=== PATIENT | male | born 2000 | race Hispanic/Latino ===

== ENCOUNTER 2018-03-14 16:49 | Emergency (ER) | payer OTHER ==
[2018-03-14] MEDS ORDERED: FAMOTIDINE 20 MG TAB ONE (18:20)
[2018-03-14] MEDS ORDERED: NA CHLORIDE 0.9% 1,000 ML ONE (18:20)
[2018-03-14] MEDS ORDERED: ONDANSETRON 4 MG (ODT) TAB ONE (18:20)
[2018-03-14 18:36] LABS: ALT/SGPT 25 U/L (12-78); AST/SGOT 14 U/L (15-37); Albumin 4.8 g/dL (3.4-5.0); Alkaline Phosphatase 84 U/L (45-117); BUN Blood Urea Nitrogen 8 mg/dL (7-18); Bicarbonate 24 mmol/L (21-32); Bilirubin Direct 0.2 mg/dL (0-0.2); Glucose Level 74 mg/dL (74-106); Potassium 3.7 mmol/L (3.5-5.1); Protein, Total 8.2 g/dL (6.4-8.2); Sodium Level 141 mmol/L (136-145)
[2018-03-14 18:41] LABS: Protime INR 1.2
[2018-03-14 18:47] LABS: Absolute Lymphocytes (CBC) 1.1 K/uL (0.7-4.9); Absolute Monocytes 0.3 K/uL (0.1-1.3); Absolute Neutrophil 1.5 K/uL (1.8-8.0); Basophils % 0.6 % (0-1.3); Eosinophils % 0.9 % (0-4.4); Hematocrit 46.9 % (39.6-49.0); Lymphocytes % 36.6 % (15.3-44.8); MPV 10.6 fL (7.6-11.3); Monocytes % 10.6 % (3.3-12.3); RBC Red Blood Cell Count 5.79 M/uL (4.33-5.43)
[2018-03-14 19:21] LABS: Blood Morphology Comment NOT SEEN (NOT SEEN); Platelet Estimate ADEQ; Urine White Blood Cell Casts OK
[2018-03-14 19:29] LABS: Barbiturates NEGATIVE (NEGATIVE); Benzodiazepines NEGATIVE (NEGATIVE); Cocaine NEGATIVE (NEGATIVE); METHAMPHETAM NEGATIVE (NEGATIVE); Methadone NEGATIVE (NEGATIVE); Opiates NEGATIVE (NEGATIVE); Phencyclidine NEGATIVE (NEGATIVE); THC Cannibis NEGATIVE (NEGATIVE)
[2018-03-14 21:24] LABS: Urine Blood TRACE (NEG); Urine Glucose NEGATIVE (NEG); Urine Protein 1+ (NEG); Urine Specific Gravity >1.030 (1.005-1.030)
--- NOTE | 2018-03-14 23:14 | EKG ---
Test Date: 2018-03-14 Test Time: 17:36:29 Carry Out Clerk: GALILEO MEASUREMENT RESULTS: Intervals: Rate: 71 SC: 134 QRSD: 88 QT: 358 QTc: 389 [place]: P: 65 SC: 134 QRS: 73 T: 70 INTERPRETIVE STATEMENTS: Normal sinus rhythm with sinus arrhythmia Normal ECG No previous ECG available for comparison Electronically Signed On 03-14-18 23:13:37 STEEL CRANE OPERATOR by Dashawn Strong
--- NOTE | 2018-03-15 01:29 | ER ---
Nurse's Notes [facility] Name: Dann Mckeon Age: 17 yrs Sex: Male : 2000 Arrival Date: 03/14/2018 Time: 16:52 Bed 20 Private MD: Diagnosis: Acute stress reaction Presentation: 03/14 16:59 Presenting complaint: Patient states: "I've been suicidal thoughts for the past 2 aj1 weeks, its because of a long-term relationship break up, and I've been having trouble sleeping and eating." Denies homicidal ideation. Denies a plan at this time. Transition of care: patient was not received from another setting of care. Onset of symptoms was 2018. Risk Assessment: Do you want to hurt yourself or someone else? Patient reports desire/thoughts of hurting themselves or someone else. Provider notified. Initial Sepsis Screen: Does the patient meet any 2 criteria? No. Patient's initial sepsis screen is negative. Does the patient have a suspected source of infection? No. Patient's initial sepsis screen is negative. Care prior to arrival: None. 16:59 Method Of Arrival: Ambulatory aj1 16:59 Acuity: KATIE 2 aj1 Triage Assessment: 17:02 General: Appears in no apparent distress. comfortable, Behavior is calm, cooperative, aj1 appropriate for age. Pain: Denies pain. Neuro: Level of Consciousness is awake, alert, obeys commands. Cardiovascular: Patient's skin is warm and dry. Respiratory: Airway is patent Respiratory effort is even, unlabored, Respiratory pattern is regular, symmetrical. Historical: - Allergies: 17:02 No Known Allergies; aj1 - Home Meds: 17:02 None [Active]; aj1 - PMHx: 17:02 None; aj1 - PSHx: 17:02 None; aj1 - Immunization history:: Flu vaccine is not up to date. - Social history:: Smoking status: Patient uses tobacco products, denies chronic smoking, but will smoke occasionally. - Ebola Screening: : Patient denies travel to an Ebola-affected area in the 21 days before illness onset. Screenin:49 Abuse screen: Denies threats or abuse. Nutritional screening: No deficits noted. em Tuberculosis screening: No symptoms or risk factors identified. Fall Risk None identified. Assessment: 17:45 General: Appears in no apparent distress. comfortable, Behavior is calm, cooperative, em reports feeling suicidal by hanging himself with rope or shoe laces due to recent breakup with girlfriend, pt states he wants to hurt himself but isn't committed, pt has cut himself on the left arm previously, also reports being nauseous and throwing up for about a month, also reports losing about 20 pounds in the month. Pain: Denies pain. Neuro: Level of Consciousness is awake, alert, obeys commands, Oriented to person, place, time, situation. Cardiovascular: Patient's skin is warm and dry. Respiratory: Airway is patent Respiratory effort is even, unlabored, Respiratory pattern is regular, symmetrical. GI: Reports nausea. Derm: Skin is intact, scarring noted to the left arm. Musculoskeletal: Range of motion: intact in all extremities. 17:55 Reassessment: I agree with previous assessment. hb 18:50 Reassessment: Patient appears in no apparent distress at this time. Patient and/or em family updated on plan of care and expected duration. Pain level reassessed. Patient is alert, oriented x 3, equal unlabored respirations, skin warm/dry/pink. given water, tolerated well Patient denies pain at this time. 19:00 General: Appears in no apparent distress. comfortable, Behavior is calm, cooperative. rr5 Pain: Denies pain. Neuro: Level of Consciousness is awake, alert, obeys commands, Oriented to person, place, time, situation, Reports suicidal ideation and depression verbalized. Cardiovascular: Capillary refill < 3 seconds Patient's skin is warm and dry. Respiratory: Airway is patent Respiratory effort is even, unlabored, Respiratory pattern is regular, symmetrical. GI: No signs and/or symptoms were reported involving the gastrointestinal system. : No signs and/or symptoms were reported regarding the genitourinary system. 20:00 Reassessment: Patient appears in no apparent distress at this time. No changes from rr5 previously documented assessment. Patient is alert, oriented x 3, equal unlabored respirations, skin warm/dry/pink. administrative assistant receptionist at bedside. no nausea or vomiting reported Patient denies pain at this time. Patient states symptoms have improved. EENT: No signs and/or symptoms were reported regarding the EENT system. Derm: Skin is intact, scar laceration wound at left wrist. Musculoskeletal: Capillary refill < 3 seconds, Range of motion: intact in all extremities. 21:00 Reassessment: Patient appears in no apparent distress at this time. No changes from rr5 previously documented assessment. Patient and/or family updated on plan of care and expected duration. Pain level reassessed. Patient is alert, oriented x 3, equal unlabored respirations, skin warm/dry/pink. awaiting for [facility] staff. 22:00 Reassessment: Patient appears in no apparent distress at this time. No changes from rr5 previously documented assessment. Patient is alert, oriented x 3, equal unlabored respirations, skin warm/dry/pink. no complaints made Patient denies pain at this time. 23:00 Reassessment: Patient appears in no apparent distress at this time. Patient and/or rr5 family updated on plan of care and expected duration. Pain level reassessed. Patient is alert, oriented x 3, equal unlabored respirations, skin warm/dry/pink. [facility] staff at bedside, examining the patient. 03/15 00:15 Reassessment: Patient appears in no apparent distress at this time. Patient is alert, rr5 oriented x 3, equal unlabored respirations, skin warm/dry/pink. awaiting for [facility] staff findings. 01:00 Reassessment: Patient appears in no apparent distress at this time. Patient is alert, rr5 oriented x 3, equal unlabored respirations, skin warm/dry/pink. Patient states feeling better. Patient states symptoms have improved. 01:50 Reassessment: valuables returned to patient complete and double check by the patient. rr5 02:00 Reassessment: Patient appears in no apparent distress at this time. Patient is alert, rr5 oriented x 3, equal unlabored respirations, skin warm/dry/pink. discharge instruction given and explained without complaints made. Patient denies pain at this time. Psych: 03/14 17:04 Suicide Risk Assessment: Sad Person Scale: Sex of patient: Male: Score 1 point. Age of aj1 patient: Score 1 point if patient 15-34. Depression: Score 1 point if signs of depression are present. Previous Attempt: Score 0 point if patient has not previously attempted suicide. Substance Abuse: Score 0 point if patient does not abuse alcohol or drugs. Rational Thinking: Score 0 point if patient has rational thinking. Social Support: Score 0 if social support is present/available. Organized Plan: Score 0 if patient did not have an organized plan in place. Relationship: Score 1 point if patient is , , , or for a single male Chronic Sickness: Score 0 point if patient does not have a chronic illness, debilitating, or severe disorder. TOTAL POINTS: If total points are 3-4, proposed clinical action is close follow-up/consider hospitalization. Pt denies substance abuse. 17:50 Subjective: Patient's mood is sad, Delusions are denied, Hallucinations are denied em Having thoughts of suicide. Objective: Patient is cooperative, Speech is normal, Affect is appropriate, Patient has mutilated themselves by previously cut left wrist. Interventions: Removed personal items and placed in bag. Patient placed in hospital gown. Searched person for dangerous items. Belonging list filled out. Safety Checks: Personal items have been removed. Door is open. Visitors are present. Commitment: Patient will be a voluntary commitment. Vital Signs: 17:02 BP 118 / 86; Pulse 66; Resp 16; Temp 98.9(TE); Pulse Ox 100% on R/A; Weight 58.97 kg aj (R); Height 5 ft. 11 in. (180.34 cm) (R); Pain 0/10; 21:06 BP 133 / 87; Pulse 100; Resp 18; Temp 98.7; Pulse Ox 97% on R/A; ar5 02/02 01:30 BP 135 / 80; Pulse 95; Resp 16; Pulse Ox 99% ; rr5 02/ 17:02 Body Mass Index 18.13 (58.97 kg, 180.34 cm) [facility] ED Course: 03/14 16:52 Patient arrived in ED. mr 17:01 Triage completed. aj1 17:02 Arm band placed on Patient placed in an exam room. aj1 17:15 Safety checks: Items removed: yes. Door open/sign placed on door: yes. Family/friend mh5 present: yes. Family/friends encouraged to stay with patient. Sitter present: Yes. 17:18 Kentrell Little MD is Attending Physician. kdr 17:30 Bola Tamayo LVN is Primary Nurse. em 17:30 Safety checks: Items removed: yes. Door open/sign placed on door: yes. Family/friend mh5 present: yes. Sitter present: Yes. 17:41 Missed attempt(s): 20 gauge in right antecubital area. mh5 17:42 Patient has correct armband on for positive identification. Placed in gown. Bed in low mh5 position. Side rails up X 1. Adult w/ patient. Warm blanket given. 17:45 Safety checks: Items removed: yes. Door open/sign placed on door: yes. Family/friend mh5 present: yes. Family/friends encouraged to stay with patient. Sitter present: Yes. 17:57 EKG done, by chemical laboratory technician. reviewed by Kentrell Little MD. dt2 18:00 Safety checks: Items removed: yes. Door open/sign placed on door: yes. Family/friend mh5 present: yes. Family/friends encouraged to stay with patient. Sitter present: Yes. 18:00 Initial lab(s) drawn, by me, sent to lab. Inserted saline lock: 22 gauge in right em antecubital area, using aseptic technique. Blood collected. 18:15 Safety checks: Items removed: yes. Door open/sign placed on door: yes. Family/friend mh5 present: yes. Family/friends encouraged to stay with patient. Sitter present: Yes. 18:30 Safety checks: Items removed: yes. Door open/sign placed on door: yes. Family/friend mh5 present: yes. Family/friends encouraged to stay with patient. Sitter present: Yes. 18:45 Safety checks: Items removed: yes. Door open/sign placed on door: yes. Family/friend mh5 present: yes. Family/friends encouraged to stay with patient. Sitter present: Yes. 18:53 Gary Duong NP is PHCP. pm1 19:00 Safety Checks: Personal items have been removed. The door is open or patient has been rr5 placed in a hallway bed/chair. A family member and/or friend is present and encouraged to stay. Sitter present at this time. 19:00 Safety checks: Items removed: yes. Door open/sign placed on door: yes. Family/friend mh5 present: yes. Family/friends encouraged to stay with patient. Sitter present: Yes. 19:15 Safety checks: Items removed: yes. Door open/sign placed on door: yes. Family/friend mh5 present: yes. Family/friends encouraged to stay with patient. Sitter present: Yes. 19:30 Safety checks: Items removed: yes. Door open/sign placed on door: yes. Family/friend ar5 present: yes. Sitter present: Yes. 19:45 Safety checks: Items removed: yes. Door open/sign placed on door: yes. Family/friend ar5 present: yes. Sitter present: Yes. 20:00 Safety checks: Items removed: yes. Door open/sign placed on door: yes. Family/friend ar5 present: yes. Sitter present: Yes. 20:15 Safety checks: Items removed: yes. Door open/sign placed on door: yes. Family/friend ar5 present: yes. Sitter present: Yes. 20:30 Safety checks: Items removed: yes. Door open/sign placed on door: yes. Family/friend ar5 present: yes. Sitter present: Yes. 20:45 Safety checks: Items removed: yes. Door open/sign placed on door: yes. Family/friend ar5 present: yes. Sitter present: Yes. 21:00 Safety checks: Items removed: yes. Door open/sign placed on door: yes. Family/friend ar5 present: yes. Sitter present: Yes. 21:15 Safety checks: Items removed: yes. Door open/sign placed on door: yes. Family/friend ar5 present: yes. Sitter present: Yes. 21:30 Safety checks: Items removed: yes. Door open/sign placed on door: yes. Family/friend ar5 present: yes. Sitter present: Yes. 21:45 Safety checks: Items removed: yes. Door open/sign placed on door: yes. Family/friend ar5 present: yes. Sitter present: Yes. 22:00 Safety checks: Items removed: yes. Door open/sign placed on door: yes. Family/friend ar5 present: yes. Sitter present: Yes. 22:15 Safety checks: Items removed: yes. Door open/sign placed on door: yes. Family/friend ar5 present: yes. Sitter present: Yes. 22:20 [facility] arrived \\T\\[id number]. [id number] 22:30 Safety checks: Items removed: yes. Door open/sign placed on door: yes. Family/friend ar5 present: yes. Sitter present: Yes. 22:45 Safety checks: Items removed: yes. Door open/sign placed on door: yes. Family/friend ar5 present: yes. Sitter present: Yes. 23:00 Safety checks: Items removed: yes. Door open/sign placed on door: yes. Family/friend ar5 present: yes. Sitter present: Yes. 23:15 Safety checks: Items removed: yes. Door open/sign placed on door: yes. Family/friend ar5 present: yes. Sitter present: Yes. 23:30 Safety checks: Items removed: yes. Door open/sign placed on door: yes. Family/friend ar5 present: yes. Sitter present: Yes. 23:31 [facility] left room \\T\\[id number]. ar5 23:45 Safety checks: Items removed: yes. Door open/sign placed on door: yes. Family/friend ar5 present: yes. Sitter present: Yes. 03/15 00:00 Safety checks: Items removed: yes. Door open/sign placed on door: yes. Family/friend ar5 present: yes. Sitter present: Yes. 00:15 Safety checks: Items removed: yes. Door open/sign placed on door: yes. Family/friend ar5 present: yes. Sitter present: Yes. 00:30 Safety checks: Items removed: yes. Door open/sign placed on door: yes. Family/friend ar5 present: yes. Sitter present: Yes. 00:45 Safety checks: Items removed: yes. Door open/sign placed on door: yes. Family/friend ar5 present: yes. Sitter present: Yes. 01:00 Safety checks: Items removed: yes. Door open/sign placed on door: yes. Family/friend ar5 present: yes. Sitter present: Yes. 01:15 Safety checks: Items removed: yes. Door open/sign placed on door: yes. Family/friend ar5 present: yes. Sitter present: Yes. 01:30 Safety checks: Items removed: yes. Door open/sign placed on door: yes. Family/friend ar5 present: yes. Sitter present: Yes. 01:55 No provider procedures requiring assistance completed. IV discontinued, intact, rr5 bleeding controlled, No redness/swelling at site. Pressure dressing applied. Administered Medications: 03/14 18:21 Drug: Zofran 4 mg Route: PO; em 03/15 02:00 Follow up: Response: No adverse reaction rr5 03/14 18:21 Drug: NS 0.9% 1000 ml Route: IV; Rate: 1 bolus; Site: right antecubital; em 03/15 02:00 Follow up: Response: No adverse reaction; IV Status: Completed infusion; IV Intake: rr5 1000ml 03/14 18:41 Drug: Pepcid 20 mg Route: PO; em 03/15 02:10 Follow up: Response: No adverse reaction rr5 Intake: 02:00 IV: 1000ml; Total: 1000ml. rr5 Outcome: 01:28 Discharge ordered by . pm1 02:00 Discharged to home ambulatory. rr5 02:00 Condition: stable 02:00 Discharge instructions given to patient, Instructed on discharge instructions, follow up and referral plans. Demonstrated understanding of instructions, follow-up care. 02:08 Patient left the ED. rr5 Signatures: Arti Roche RN RN aj1 Kentrell Little MD MD kdr Rivera, Mary mr Bola Tamayo, FISCAL TECHNICIAN FISCAL TECHNICIAN em Gary Duong, INTERNET SITE DESIGNER INTERNET SITE DESIGNER pm1 Nikki Monterroso RN RN hb Martinez, Maria Marlin Willson dt2 Abdias Phillips RN RN rr5 Genesis Lucas al5
--- NOTE | 2018-03-15 01:30 | EDPHYS ---
Physician Documentation [facility] Name: Dann Mckeon Age: 17 yrs Sex: Male : 2000 Arrival Date: 03/14/2018 Time: 16:52 Bed 20 Private MD: ED Physician Kentrell Little HPI: 03/14 18:35 This 17 yrs old Male presents to ER via Ambulatory with complaints of Suicidal kdr Ideation, Depression. 18:35 The patient presents to the emergency department with depression, over a relationship, kdr has had a recent break-up, suicide ideation, but the patient has no formulated plan. Onset: The symptoms/episode began/occurred acutely, 2 week(s) ago. Associated signs and symptoms: The patient has no apparent associated signs or symptoms. Severity of symptoms: At their worst the symptoms were mild moderate in the emergency department the symptoms are unchanged. The patient has not experienced similar symptoms in the past. The patient has not recently seen a physician. Historical: - Allergies: 17:02 No Known Allergies; aj1 - Home Meds: 17:02 None [Active]; aj1 - PMHx: 17:02 None; aj1 - PSHx: 17:02 None; aj1 - Immunization history:: Flu vaccine is not up to date. - Social history:: Smoking status: Patient uses tobacco products, denies chronic smoking, but will smoke occasionally. - Ebola Screening: : Patient denies travel to an Ebola-affected area in the 21 days before illness onset. ROS: 18:35 Constitutional: Negative for fever, chills, and weight loss, Eyes: Negative for injury, kdr pain, redness, and discharge, ENT: Negative for injury, pain, and discharge, Neck: Negative for injury, pain, and swelling, Cardiovascular: Negative for chest pain, palpitations, and edema, Respiratory: Negative for shortness of breath, cough, wheezing, and pleuritic chest pain, Abdomen/GI: Negative for abdominal pain, nausea, vomiting, diarrhea, and constipation, Back: Negative for injury and pain, : Negative for injury, bleeding, discharge, and swelling, MS/Extremity: Negative for injury and deformity, Skin: Negative for injury, rash, and discoloration, Neuro: Negative for headache, weakness, numbness, tingling, and seizure activity. Allergy/Immunology: Negative for hives, rash, and allergies, Endocrine: Negative for neck swelling, polydipsia, polyuria, polyphagia, and marked weight changes, Hematologic/Lymphatic: Negative for swollen nodes, abnormal bleeding, and unusual bruising. 18:35 Psych: Positive for depression, suicidal ideation, Negative for depression, suicidal ideation. Exam: 18:35 Constitutional: This is a well developed, well nourished patient who is awake, alert, kdr and in no acute distress. Head/Face: Normocephalic, atraumatic. Eyes: Pupils equal round and reactive to light, extra-ocular motions intact. Lids and lashes normal. Conjunctiva and sclera are non-icteric and not injected. Cornea within normal limits. Periorbital areas with no swelling, redness, or edema. Neck: Trachea midline, no thyromegaly or masses palpated, and no cervical lymphadenopathy. Supple, full range of motion without nuchal rigidity, or vertebral point tenderness. No Meningismus. Chest/axilla: Normal chest wall appearance and motion. Nontender with no deformity. No lesions are appreciated. Cardiovascular: Regular rate and rhythm with a normal S1 and S2. No gallops, murmurs, or rubs. Normal PMI, no JVD. No pulse deficits. Respiratory: Lungs have equal breath sounds bilaterally, clear to auscultation and percussion. No rales, rhonchi or wheezes noted. No increased work of breathing, no retractions or nasal flaring. Abdomen/GI: Soft, non-tender, with normal bowel sounds. No distension or tympany. No guarding or rebound. No evidence of tenderness throughout. Back: No spinal tenderness. No costovertebral tenderness. Full range of motion. MS/ Extremity: Pulses equal, no cyanosis. Neurovascular intact. Full, normal range of motion. Neuro: Awake and alert, GCS 15, oriented to person, place, time, and situation. Cranial nerves II-XII grossly intact. Motor strength 5/5 in all extremities. Sensory grossly intact. Cerebellar exam normal. Normal gait. 18:35 Psych: Behavior/mood is pleasant, cooperative, Affect is flat, Oriented to Patient having thoughts of suicide. Judgement / Insight is normal. Vital Signs: 17:02 BP 118 / 86; Pulse 66; Resp 16; Temp 98.9(TE); Pulse Ox 100% on R/A; Weight 58.97 kg aj1 (R); Height 5 ft. 11 in. (180.34 cm) (R); Pain 0/10; 21:06 BP 133 / 87; Pulse 100; Resp 18; Temp 98.7; Pulse Ox 97% on R/A; ar5 03/15 01:30 BP 135 / 80; Pulse 95; Resp 16; Pulse Ox 99% ; rr5 03/14 17:02 Body Mass Index 18.13 (58.97 kg, 180.34 cm) [facility] MDM: 03/14 18:35 Data reviewed: vital signs, nurses notes, lab test result(s), EKG. Counseling: I had a kdr detailed discussion with the patient and/or guardian regarding: the historical points, exam findings, and any diagnostic results supporting the discharge/admit diagnosis, lab results, radiology results, the need for outpatient follow up. 18:53 Patient medically screened. pm1 23:10 ED course: [facility] present for evalution. pm1 03/15 01:22 Counseling: I had a detailed discussion with the patient and/or guardian regarding: the pm1 historical points, exam findings, and any diagnostic results supporting the discharge/admit diagnosis, lab results, the need for outpatient follow up, a psychiatrist, to return to the emergency department if symptoms worsen or persist or if there are any questions or concerns that arise at home. 03/14 17:18 Order name: Acetaminophen; Complete Time: 21:29 [facility] 03/14 17:18 Order name: Basic Metabolic Panel; Complete Time: 21:29 [facility] 03/14 17:18 Order name: CBC with Diff; Complete Time: 21:29 [facility] 03/14 17:18 Order name: ETOH Level; Complete Time: 21:29 [facility] 03/14 17:18 Order name: Hepatic Function; Complete Time: 21:29 [facility] 03/14 17:18 Order name: PT-INR; Complete Time: 21:29 [facility] 03/14 17:18 Order name: Ptt, Activated; Complete Time: 21:29 [facility] 03/14 17:18 Order name: Salicylate; Complete Time: 21:29 [facility] 03/14 17:18 Order name: Urine Drug Screen; Complete Time: 21:29 [facility] 03/14 18:50 Order name: CBC Smear Scan; Complete Time: 21:29 [facility] 03/14 19:21 Order name: Urine Dipstick--Ancillary (enter results); Complete Time: 21:29 mw2 03/14 17:18 Order name: EKG; Complete Time: 17:19 [facility] 03/14 17:18 Order name: EKG - Nurse/Tech; Complete Time: 17:45 kdr 03/14 17:18 Order name: IV Saline Lock; Complete Time: 18:32 kdr 03/14 17:18 Order name: Labs collected and sent; Complete Time: 18:31 kdr 03/14 17:18 Order name: Urine Dipstick-Ancillary (obtain specimen); Complete Time: 19:39 kdr 03/14 17:54 Order name: PO challenge; Complete Time: 18:42 kdr Administered Medications: 03/14 18:21 Drug: Zofran 4 mg Route: PO; em 03/15 02:00 Follow up: Response: No adverse reaction rr5 03/14 18:21 Drug: NS 0.9% 1000 ml Route: IV; Rate: 1 bolus; Site: right antecubital; em 03/15 02:00 Follow up: Response: No adverse reaction; IV Status: Completed infusion; IV Intake: rr5 1000ml 03/14 18:41 Drug: Pepcid 20 mg Route: PO; em 03/15 02:10 Follow up: Response: No adverse reaction rr5 Disposition: 03/15/18 01:28 Discharged to Home. Impression: Acute stress reaction. - Condition is Stable. - Discharge Instructions: Stress and Stress Management. - Medication Reconciliation Form, Thank You Letter form. - Follow up: Emergency Department; When: As needed; Reason: Worsening of condition. - Problem is new. - Symptoms have improved. Addendum: 03/17/2018 07:18 Co-signature as Attending Physician, Kentrell Little MD I agree with the assessment and k dr plan of care. Signatures: Dispatcher [employer] EDArti Espino RN RN aj1 Kentrell Little MD MD [facility] Bola Tamayo, BOTTLE MACHINE OPERATOR BOTTLE MACHINE OPERATOR em Gary Duong, YOKER YOKER pm1 Abdias Phillips, RN RN rr5 Corrections: (The following items were deleted from the chart) 03/15 02:08 01:28 03/15/2018 01:28 Discharged to Home. Impression: Acute stress reaction. Condition rr5 is Stable. Forms are Medication Reconciliation Form, Thank You Letter, Antibiotic Education, Prescription Opioid Use. Follow up: Emergency Department; When: As needed; Reason: Worsening of condition. Problem is new. Symptoms have improved. pm1
== END 2018-03-15 02:08 | disposition home or self-care (01) ==
LOC: ER 16:49
DX: F43.0 Acute stress reaction (principal); R45.851 Suicidal ideations; Z72.0 Tobacco use
CPT/HCPCS: 36415; 80048; 80076; 80307; 80320; 80329; 81003; 85025; 85610; 85730; 93005; 96360; 96361; 99285; J7030